=== PATIENT | male | born 1970 | race Two or more races ===

== ENCOUNTER 2017-12-18 19:28 | Emergency (ER) | payer SELFPAY ==
[~2017-12-18] VITALS: Ht 172.7 cm; Wt 71.7 kg
[2017-12-18 20:05] LABS: BASOPHILS % (AUTO) 0.8 % (0.0-2.0); EOSINOPHILS % (AUTO) 0.6 % (0.0-6.0); HEMATOCRIT 41 % (39-51); HEMOGLOBIN 14.1 g/dL (13.5-17.5); LYMPHOCYTES # (AUTO) 0.7 /CMM (0.8-4.8); LYMPHOCYTES % (AUTO) 11.9 % (20.0-44.0); MEAN CORPUSCULAR HGB CONC 35 g/dl (31.0-36.0); MEAN CORPUSCULAR VOLUME 91 fL (80-96); MONOCYTES # (AUTO) 0.4 /CMM (0.1-1.30); MONOCYTES % (AUTO) 6.7 % (2.0-12.0); NEUTROPHILS # (AUTO) 4.8 /CMM (1.8-8.9); PLATELET COUNT (AUTO) 184 /CMM (150-450); RDW COEFFICIENT OF VARIATION 12.7 (11.5-15.0); RED BLOOD CELL COUNT(AUTO) 4.46 MIL/uL (4.5-6.0); WHITE BLOOD COUNT (AUTO) 5.9 K/uL (4.3-11.0)
[2017-12-18 20:20] LABS: ALANINE AMINOTRANSFERASE 52 U/L (12-78); ALKALINE PHOSPHATASE 93 U/L (46-116); ASPARTATE AMINOTRANSFERASE 41 U/L (15-37); BILIRUBIN,DIRECT 0.2 mg/dL (0.0-0.2); BILIRUBIN,TOTAL 1.3 mg/dL (0.2-1.0); CALCIUM, SERUM 9.1 mg/dL (8.5-10.1); CARBON DIOXIDE 25 mmol/L (21-32); CHLORIDE 111 mmol/L (98-107); CREATININE 1.2 mg/dL (0.6-1.3); GLUCOSE 83 mg/dL (74-106); POTASSIUM 3.5 mmol/L (3.5-5.1); SODIUM SERUM 148 mmol/L (136-145); TOTAL PROTEIN, SERUM 7.5 g/dL (6.4-8.2); UREA NITROGEN, BLOOD 28 mg/dL (7-18)
[2017-12-18 20:23] LABS: TROPONIN I < 0.017 ng/mL (0.00-0.056)
[2017-12-18 20:31] LABS: ACETAMINOPHEN < 2 ug/ml (10-30)
[2017-12-18 20:32] LABS: ALCOHOL, BLOOD < 3 mg/dL (0-0)
[2017-12-18 20:33] LABS: SALICYLATE < 0.2 mg/dL (2.8-20.0)
[2017-12-18] MEDS ORDERED: LORAZEPAM 1 MG TABLET ONE (21:59)
[2017-12-18] MEDS ORDERED: LORAZEPAM 0.5 MG TABLET PO ONE (22:00)
[2017-12-18 23:11] VITALS: BP 151/93
== END 2017-12-18 23:12 | disposition home or self-care (01) ==
LOC: ER 19:32
DX: F15.10 Other stimulant abuse, uncomplicated (principal)
CPT/HCPCS: 36415; 80048; 80076; 80329; 84484; 85025; 99284; A4606; G0480 ×2; Z7610

== ENCOUNTER → 2017-12-18 | Emergency (ER) | payer SELFPAY ==
[~2017-12-18] VITALS: Ht 170.2 cm; Wt 68.0 kg
[2017-12-18 23:53] VITALS: BP 148/102
== END | disposition home or self-care (01) ==
LOC: ER 23:49
DX: F15.129 Other stimulant abuse with intoxication, unspecified (principal); F19.959 Other psychoactive substance use, unspecified with psychoactive substance-induced psychotic disorder, unspecified; Z59.0 Homelessness
CPT/HCPCS: 80305; 99283; A4606; Z7610

== ENCOUNTER 2018-02-08 08:38 | Emergency (ER) | payer MEDICAID ==
[~2018-02-08] VITALS: Ht 167.6 cm; Wt 63.5 kg
--- NOTE | 2018-02-08 08:45 | NUR ---
PT BIBPA, FOUND WANDERING AROUND NEIGHBORHOOD, PT APPEARS VERY SUSPICIOUS AND PARANOID OF STAFF, PER PT, TOOK METH 02/07 AT 5PM, NAD NOTED, RESPIRATIONS EVEN AND UNLABORED, VSS, AWAITING MD AGRAWAL
[2018-02-08] MEDS ORDERED: LORAZEPAM INJ 2 MG/ML VIAL ONE (09:24)
--- NOTE | 2018-02-08 09:28 | NUR ---
PT APPEARS TO BE RESTLESS AND ANXIOUS, PER MD GIVE ATIVAN VIA IM
[2018-02-08] MEDS ORDERED: LORAZEPAM INJ 2 MG/ML VIAL IM/IV ONE (09:30)
--- NOTE | 2018-02-08 11:48 | NUR ---
PT AWAKE, ALERT, RESTING IN BED, APPEARS RELAXED, PER PT "HE FEELS CALM NOW", VSS.
--- NOTE | 2018-02-08 12:10 | NUR ---
Patient discharged to home in stable condition. Written and verbal after care instructions given. Patient verbalizes understanding of instruction. Ambulatory with a steady gait
[2018-02-08 12:11] VITALS: BP 135/90
== END 2018-02-08 12:12 | disposition home or self-care (01) ==
LOC: ER 08:40
DX: F60.0 Paranoid personality disorder (principal); R45.1 Restlessness and agitation; F15.10 Other stimulant abuse, uncomplicated; F20.9 Schizophrenia, unspecified; Z59.0 Homelessness
CPT/HCPCS: 96372; 99283; A4606; J2060; Z7610

== ENCOUNTER 2019-11-27 22:54 | Emergency (ER) | payer MEDICAID, OTHER ==
[~2019-11-27] VITALS: Ht 172.7 cm; Wt 74.8 kg
[2019-11-27 22:58] VITALS: BP 129/94
--- NOTE | 2019-11-27 23:00 | NUR ---
PT BIBA C/O NONRADIATING MIDSTERNAL CHEST PRESSURE-LIKE PAIN X 2 HOURS. +JAW NUMBNESS +SOB. 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 PT AAOX4, RESPIRATIONS EVEN AND UNLABORED ON RA W/ NAD NOTED. PT CONNECTED TO THE PROPERTY DISPOSAL OFFICER AND POX.
[2019-11-27] MEDS ORDERED: LORAZEPAM INJ 2 MG/ML VIAL ONE (23:54)
[2019-11-28] MEDS ORDERED: LORAZEPAM INJ 2 MG/ML VIAL IM ONE
--- NOTE | 2019-11-28 00:18 | NUR ---
PT DENIES CHEST PAIN. PT STATES HE FEELS BETTER.
--- NOTE | 2019-11-28 00:19 | NUR ---
Patient given written and verbal discharge instructions. Patient verbalizes understanding of instructions. Patient is ambulatory with steady gait. Refuses offer of [facility] placement. Patient given list of available shelters in surrounding area.
== END 2019-11-28 00:22 | disposition home or self-care (01) ==
LOC: ER 22:55
DX: F15.90 Other stimulant use, unspecified, uncomplicated (principal); Z59.0 Homelessness
CPT/HCPCS: 96372; 99283; J2060

== ENCOUNTER 2019-11-28 15:21 | Emergency (ER) | payer MEDICAID ==
[~2019-11-28] VITALS: Ht 172.7 cm; Wt 74.8 kg
--- NOTE | 2019-11-28 15:25 | NUR ---
pt bibra from the [address] to er bed 14, c/o anxiety, hearing voices for past couple of days. pt admits to meth use. denies SI/HI. denies chest pain, awaiting md vargas.
--- NOTE | 2019-11-28 16:11 | NUR ---
dr dodge at bedside for eval.
--- NOTE | 2019-11-28 16:30 | NUR ---
laborer landscape at bedside for eval.
[2019-11-28 16:35] LABS: BASOPHILS % (AUTO) 0.5 % (0.0-2.0); EOSINOPHILS % (AUTO) 0.6 % (0.0-6.0); HEMATOCRIT 43 % (39-51); HEMOGLOBIN 14.5 g/dL (13.5-17.5); LYMPHOCYTES # (AUTO) 0.9 /CMM (0.8-4.8); LYMPHOCYTES % (AUTO) 12.8 % (20.0-44.0); MEAN CORPUSCULAR HGB CONC 33 g/dl (31.0-36.0); MEAN CORPUSCULAR VOLUME 92 fL (80-96); MONOCYTES # (AUTO) 1.1 /CMM (0.1-1.30); MONOCYTES % (AUTO) 14.7 % (2.0-12.0); NEUTROPHILS # (AUTO) 5.1 /CMM (1.8-8.9); NEUTROPHILS % (AUTO) 71.4 % (43.0-81.0); PLATELET COUNT (AUTO) 227 /CMM (150-450); WHITE BLOOD COUNT (AUTO) 7.2 K/uL (4.3-11.0)
[2019-11-28 16:48] LABS: CALCIUM, SERUM 9.3 mg/dL (8.5-10.1); CARBON DIOXIDE 28 mmol/L (21-32); CHLORIDE 107 mmol/L (98-107); CREATININE 1.3 mg/dL (0.6-1.3); GLUCOSE 124 mg/dL (74-106); POTASSIUM 3.3 mmol/L (3.5-5.1); SODIUM SERUM 144 mmol/L (136-145); UREA NITROGEN, BLOOD 17 mg/dL (7-18)
[2019-11-28 16:54] LABS: ALANINE AMINOTRANSFERASE 34 U/L (12-78); ALBUMIN 4.5 g/dL (3.4-5.0); ALKALINE PHOSPHATASE 80 U/L (46-116); ASPARTATE AMINOTRANSFERASE 19 U/L (15-37); BILIRUBIN,DIRECT 0.2 mg/dL (0.0-0.2); BILIRUBIN,TOTAL 0.7 mg/dL (0.2-1.0); TOTAL PROTEIN, SERUM 7.7 g/dL (6.4-8.2)
[2019-11-28 16:55] LABS: ACETAMINOPHEN < 10 ug/ml (10-30); ALCOHOL, BLOOD < 3 mg/dL (0-0); SALICYLATE < 2.8 mg/dL (2.8-20.0)
[2019-11-28] MEDS ORDERED: POTASSIUM CHLORIDE 20 MEQ TAB.PRT.SR PO ONE ×2 (17:00→17:50)
[2019-11-28 18:21] LABS: APPEARANCE,URINE Clear (CLEAR); BILIRUBIN,URINE Negative (NEGATIVE); BLOOD, URINE Negative Ery/uL (NEGATIVE); COLOR,URINE Yellow (YELLOW); KETONES,URINE Negative (NEGATIVE); LEUKOCYTE ESTERASE ,URINE Negative (NEGATIVE); NITRITE, URINE Negative (NEGATIVE); PROTEIN,URINE 30 mg/dl (NEGATIVE); UGLUCOSE Negative (NEGATIVE); UROBILINOGEN,URINE 0.2 EU/dL (0.2)
[2019-11-28 18:31] LABS: BACTERIA,URINE None seen /HPF (None Seen); MUCUS,URINE Moderate /LPF (None Seen); RBC,URINE 0-2 /HPF (0-2); SQUAMOUS EPITHELIAL CELL,UR Few /HPF (None Seen); URINE AMORPHOUS URATE Few /HPF (None Seen); WBC,URINE 0-2 /HPF (0-3)
--- NOTE | 2019-11-28 19:30 | NUR ---
PT STATES "I FEEL BETTER. I WANT TO GO HOME." MADE AWARE.
--- NOTE | 2019-11-28 19:35 | NUR ---
ASSUMED CARE FOR THIS PT. PT AAOX4, VSS, RESPIRATIONS EVEN AND UNLABORED ON RA W/ NAD NOTED. PT CONNECTED TO THE MONITOR AND POX. SITTER AT BEDSIDE FOR SAFETY.
--- NOTE | 2019-11-28 19:40 | NUR ---
Patient discharged to home in stable condition. Written and verbal after care instructions given. Patient verbalizes understanding of instruction.PT ambulatory with a steady gait
[2019-11-28 19:50] VITALS: BP 149/87
== END 2019-11-28 19:50 | disposition home or self-care (01) ==
LOC: ER 15:26
DX: F23 Brief psychotic disorder (principal); E87.6 Hypokalemia; F15.10 Other stimulant abuse, uncomplicated; R00.0 Tachycardia, unspecified; Z59.0 Homelessness
CPT/HCPCS: 36415; 80048; 80076; 80305; 80307; 80329; 81001; 82550; 82553; 85025; 99283; G0480; 81000-TC

== ENCOUNTER 2020-01-05 05:01 | Emergency (ER) | payer BC, MEDICAID ==
[~2020-01-05] VITALS: Ht 170.2 cm; Wt 70.3 kg
--- NOTE | 2020-01-05 05:11 | NUR ---
PT AAOX4. [address]IBRA[address] ADMITS TO CRYSTAL METH +ETOH, HEARING VOICES, VOICES TELLING HIM. PT PLACED IN BED 6 ON CHEMICAL RESEARCH ENGINEER AND PULSE OX. PT APPEARS TO BE ANXIOUS.
[2020-01-05 05:36] LABS: BASOPHILS % (AUTO) 1.1 % (0.0-2.0); EOSINOPHILS % (AUTO) 1.8 % (0.0-6.0); HEMATOCRIT 38 % (39-51); HEMOGLOBIN 12.5 g/dL (13.5-17.5); LYMPHOCYTES # (AUTO) 0.7 /CMM (0.8-4.8); LYMPHOCYTES % (AUTO) 20.2 % (20.0-44.0); MEAN CORPUSCULAR HGB CONC 33 g/dl (31.0-36.0); MEAN CORPUSCULAR VOLUME 92 fL (80-96); MONOCYTES # (AUTO) 0.4 /CMM (0.1-1.30); MONOCYTES % (AUTO) 10.3 % (2.0-12.0); NEUTROPHILS # (AUTO) 2.5 /CMM (1.8-8.9); NEUTROPHILS % (AUTO) 66.6 % (43.0-81.0); PLATELET COUNT (AUTO) 173 /CMM (150-450); RED BLOOD CELL COUNT(AUTO) 4.07 MIL/uL (4.5-6.0); WHITE BLOOD COUNT (AUTO) 3.7 K/uL (4.3-11.0)
[2020-01-05 05:47] LABS: CALCIUM, SERUM 8.5 mg/dL (8.5-10.1); CARBON DIOXIDE 25 mmol/L (21-32); CHLORIDE 106 mmol/L (98-107); CREATININE 0.8 mg/dL (0.6-1.3); GLUCOSE 95 mg/dL (74-106); POTASSIUM 3.3 mmol/L (3.5-5.1); SODIUM SERUM 140 mmol/L (136-145); UREA NITROGEN, BLOOD 15 mg/dL (7-18)
[2020-01-05 05:53] LABS: ALANINE AMINOTRANSFERASE 32 U/L (12-78); ALBUMIN 3.7 g/dL (3.4-5.0); ALCOHOL, BLOOD < 3 mg/dL (0-0); ALKALINE PHOSPHATASE 91 U/L (46-116); ASPARTATE AMINOTRANSFERASE 36 U/L (15-37); BILIRUBIN,DIRECT 0.1 mg/dL (0.0-0.2); BILIRUBIN,TOTAL 0.4 mg/dL (0.2-1.0); TOTAL PROTEIN, SERUM 6.8 g/dL (6.4-8.2)
[2020-01-05 05:54] LABS: ACETAMINOPHEN < 2 ug/ml (10-30)
--- NOTE | 2020-01-05 06:11 | NUR ---
URINE COLLECTED AND SENT TO LAB.
[2020-01-05 06:19] LABS: APPEARANCE,URINE CLEAR (CLEAR); BILIRUBIN,URINE NEGATIVE (NEGATIVE); BLOOD, URINE NEGATIVE Ery/uL (NEGATIVE); COLOR,URINE YELLOW (YELLOW); KETONES,URINE NEGATIVE (NEGATIVE); LEUKOCYTE ESTERASE ,URINE NEGATIVE (NEGATIVE); NITRITE, URINE NEGATIVE (NEGATIVE); PH,URINE 6.5 (5.0-8.0); PROTEIN,URINE NEGATIVE (NEGATIVE); UGLUCOSE NEGATIVE (NEGATIVE); UROBILINOGEN,URINE 0.2 EU/dL (0.2)
[2020-01-05] MEDS ORDERED: LORAZEPAM INJ 2 MG/ML VIAL ONE ×2 (06:25→07:08)
[2020-01-05] MEDS: LORAZEPAM INJ 2 MG/ML VIAL IVP ONE ×2 (06:37→06:50)
[2020-01-05] MEDS ORDERED: OLANZAPINE 10 MG VIAL IM ONE ×2 (07:13→07:30)
--- NOTE | 2020-01-05 13:45 | NUR ---
PT IS AWAKE. VERBALLY RESPONSIVE. AAOX4. PT AMBULATED WITH STEADY GAIT.
--- NOTE | 2020-01-05 16:00 | NUR ---
PT PROVIDED WITH FOOD.
--- NOTE | 2020-01-05 16:39 | NUR ---
Patient discharged to home in stable condition. Written and verbal after care instructions given. Patient verbalizes understanding of instruction. Pt ambulatory with a steady gait
--- NOTE | 2020-01-05 16:39 | NUR ---
PT REFUSED TO SIGN HOMELESS WAIVER AND LEFT WITHOUT RECEIVING ACI.
[2020-01-05 16:40] VITALS: BP 147/90
== END 2020-01-05 16:40 | disposition home or self-care (01) ==
LOC: ER 05:01
DX: F19.10 Other psychoactive substance abuse, uncomplicated (principal); R44.0 Auditory hallucinations; F17.200 Nicotine dependence, unspecified, uncomplicated; Z59.0 Homelessness
CPT/HCPCS: 36415; 80048; 80076; 80299; 80307; 80320; 81001; 85025; 96372; 96374; 99285; J2060; J3490; 81000-TC; G0480

== ENCOUNTER 2020-02-08 00:10 | Emergency (ER) | payer MEDICAID ==
[~2020-02-08] VITALS: Ht 170.2 cm; Wt 59.0 kg
[2020-02-08] MEDS ORDERED: OLANZAPINE 5 MG TABLET ONE (00:17)
--- NOTE | 2020-02-08 00:18 | NUR ---
BIBRA 60 FOR C/O ANXIETY AND PARANOIA S/P USING METH. PT AMBULATORY, ALERT AND RESPONSIVE. DENIED SI/HI. NO C/O PAIN OR DISCOMFORT. NO H/A OE CP. AMBULATORY TO BED 12. WAS PLACED ON A MONITOR .VSS. WILL CONT TO MONITOR ,
[2020-02-08] MEDS ORDERED: OLANZAPINE 5 MG TABLET PO ONE (00:30)
--- NOTE | 2020-02-08 00:44 | NUR ---
PATIENT IS SLEEPING. EYES ARE CLOSED. NOT IN DISTRESS. PATIENT IS EASILY AROUSABLE. BREATHING EVENLY AND UNLABORED ON ROOM AIR. CONNECTED TO MONITOR. SITTER AT BEDSIDE.
--- NOTE | 2020-02-08 00:54 | NUR ---
PATIENT AMBULATED TO THE RESTROOM WITH A STEADY GAIT.
--- NOTE | 2020-02-08 01:45 | NUR ---
PATIENT IS SLEEPING. EASILY AROUSABLE BREATHING EVENLY AND UNLABORED ON ROOM AIR. CONNECTED TO THE MONITORS. SITTER AT BEDSIDE.
--- NOTE | 2020-02-08 04:41 | NUR ---
PATIENT'S EYES ARE CLOSED. PATIENT IS ASLEEP. EASILY AROUSABLE. BREATHING EVENLY AND UNLABORED ON ROOM AIR. CONNECTED TO MONITOR. SITTER AT BEDSIDE
--- NOTE | 2020-02-08 05:50 | NUR ---
Patient discharged to home in stable condition. Written and verbal after care instructions given. Patient verbalizes understanding of instruction.
[2020-02-08 05:52] VITALS: BP 123/74
== END 2020-02-08 05:53 | disposition home or self-care (01) ==
LOC: ER 00:17
DX: F15.10 Other stimulant abuse, uncomplicated (principal); F41.9 Anxiety disorder, unspecified; F17.200 Nicotine dependence, unspecified, uncomplicated; Z59.0 Homelessness